=== PATIENT | female | born 1975 | race Caucasian/White ===

== ENCOUNTER → 2017-11-18 | Outpatient (CLI) | payer OTHER ==
[2006-04-18 10:55] VITALS: TEMP 97.2
[~2017-11-18] MED LIST: PRENTAL 1 PLUS1 TAB PO; PREVACID 15MG15 M1 PO
== END ==
LOC: MC.RAD 08:40
DX: Z12.31 Encounter for screening mammogram for malignant neoplasm of breast (principal)

== ENCOUNTER → 2018-12-17 | Outpatient (CLI) | payer OTHER ==
[2006-04-18 10:55] VITALS: TEMP 97.2
== END ==
LOC: MC.RAD 10:26
DX: Z12.31 Encounter for screening mammogram for malignant neoplasm of breast (principal)

== ENCOUNTER → 2020-01-05 | Outpatient (CLI) | payer OTHER ==
[2006-04-18 10:55] VITALS: TEMP 97.2
== END ==
LOC: MC.RAD 11:36
DX: Z12.31 Encounter for screening mammogram for malignant neoplasm of breast (principal)

== ENCOUNTER → 2021-01-30 | Outpatient (CLI) | payer OTHER ==
[2006-04-18 10:55] VITALS: TEMP 97.2
== END ==
LOC: MC.RAD 01-09 08:15
DX: Z12.31 Encounter for screening mammogram for malignant neoplasm of breast (principal)

== ENCOUNTER → 2022-08-14 | Outpatient (CLI) | payer BC ==
[2006-04-18 10:55] VITALS: TEMP 97.2
== END ==
LOC: MC.RAD 08:23
DX: Z12.31 Encounter for screening mammogram for malignant neoplasm of breast (principal)

== ENCOUNTER → 2023-12-11 | Outpatient (CLI) | payer BC ==
[2006-04-18 10:55] VITALS: TEMP 97.2
== END ==
LOC: MC.RAD 10:59
DX: Z12.31 Encounter for screening mammogram for malignant neoplasm of breast (principal)